=== PATIENT | female | born 1950 | race Caucasian/White ===

== ENCOUNTER 2017-12-11 11:48 | Day surgery (SDC) | payer MEDICARE, OTHER, SELFPAY ==
--- NOTE | 2017-12-06 16:58 | PM.PREOP ---
Pre-operative Note Interval Note Pre-op Check: Yes History & Physical Reviewed by Physician Changes: No
[2017-12-11 12:06] VITALS: BP 116/74; PULSE 70; RESP 16; TEMP 36.2; O2SAT 97; BMI 20.6
[2017-12-11] MEDS: PROPARACAINE 0.5% OPHTH SOL 2 DROPS EYE-OP (12:15)
[2017-12-11] MEDS: CATARACT EYE COMPOUND (10 DROPS/SYRINGE) 3 DROPS EYE-OP (12:20)
[2017-12-11] MEDS: BALANCED SALT IRRIG SOLN NO.2 15 ML IRRIG.SOLN IRR (13:34)
[2017-12-11] MEDS: LIDOCAINE 1% W/EPI INJ 20 ML INJ (13:35)
[2017-12-11] MEDS: HYALURONATE SODIUM 10 MG/ML SYRINGE INJ (13:35)
[2017-12-11] MEDS: CHONDROIDTIN/SOD HYALURONATE 1.05 ML SYRINGE INTRAOCULA (13:35)
[2017-12-11] MEDS: NEOMYCIN/POLY/DEX OPHTH OINT 1 APPLIC EYE-RIGHT (13:36)
[2017-12-11] MEDS: MOXIFLOXACIN OPHTH DROPS 3 ML BOTTLE 2 DROPS INJ (13:36)
[2017-12-11] MEDS: OFLOXACIN 0.3% OPHTH 5 ML 2 DROPS EYE-RIGHT (13:37)
[2017-12-11] MEDS: PHENYLEPHRINE/LIDOCAINE VIAL (OR) 0.2 ML EYE-OP (13:37)
[2017-12-11] MEDS: TRIAMCINOLONE 50 MG/5 ML VIAL INJ (13:38)
[2017-12-11] MEDS: BALANCED SALT IRRIG SOLN NO.2 500 ML, EPINEPHrine 1 MG IRR (13:39)
[2017-12-11] MEDS: LIDOCAINE 2% 4 ML, BUPIVACAINE 0.5% (PF) 4 ML, HYALURONIDASE 150 UNIT INJ (13:40)
[2017-12-11 14:10] VITALS: BP 141/90; PULSE 51; RESP 16; TEMP 36.5; O2SAT 100
--- NOTE | 2017-12-11 15:36 | PM.OP.1 ---
Operative Date/Time/Diagnoses Date of procedure: 12/11/17 Time of procedure: 13:00 Procedure & Clinicians Procedure: Date of service: [] Preoperative diagnoses: 1. Right [] Cataract Postoperative diagnoses: 1. Cataract Nuclear sclerotic and cortical. 2. Astigmatism which she elects to correct with a toric intraocular lens. Procedure: Phacoemulsification with posterior chamber toric intraocular lens implant Surgeon: Adamaris Kowalski MD Complications none Specimen: None Implant:[id number] [place] 065 Blood loss: None Anesthesia: Retrobulbar with monitored standby Anesthesiologist: Rajan Agrawal M.D. Description of procedure: Patient is a female 67 year old with decreased vision due to cataract which is affecting activities of daily living. She wants surgery to improve vision. She was taken to the operating room and given IV sedation. Proparacaine drops are placed in indelible ink rae were placed at the 90 and 180 degree meridian. She is then placed on the operating room table and given a retrobulbar block insert consisting of 6 cc of 2% xylocaine without epinephrine mixed half and half with 0.5% Marcaine with 1 cc of hyaluronidase added is placed between the medial and lateral 1/3 of the inferior orbital rim. Lid akinesia is obtain with 1% xylocaine with epinephrine infiltrated along the lid margin. The eye is manually massaged for 30 sec, prepped using Betadine solution, and draped in the usual sterile fashion. Temporal approach was made, a 1 mm side-port incision was made at the 7:30 position. Phenylephrine 1.5% mixed with 1% xylocaine 0.2 cc was placed into the anterior chamber. Viscoat followed by Robinson was then placed. A 2.6 mm clear incision with a 2.6 mm blade was placed at the 170 degree meridian. A 360 degree capsulorrhexis style capsulotomy was then performed with a cystitome needle on a Healon. Hydrodelineation and hydrodissection were performed. The phacoemulsification unit is introduced, and sculpting notice used to groove the central lens. It is then removed in chopping mode. Epi nucleus is removed with epinuclear mode and irrigation aspiration was used to remove the peripheral cortex. The posterior capsule is polished. The intraocular lens is selected, inspected, power confirmed, and placed in the posterior chamber. The pupil was not constricted. The wound was strongly hydrated and tested for leaks, there was none and was left sutureless. Vigamox 0.1 cc was placed into the anterior chamber at the 65 degree meridian confirmed by multiple corneal markers. Kenalog 0.2 cc was placed in the superior subconjunctival space. A drop of antibiotic and was placed and the eye was patched and shielded. The patient was stable and returned to the recovery room in excellent condition. Dictated by: Adamaris Kowalski MD Copy to: [facility] Same procedure as scheduled: Yes
== END 2017-12-11 14:25 | disposition home or self-care (01) ==
LOC: OR 11:49
PROVIDERS: PCP Physician Assistant Medical; Visit Provider Ophthalmology
DX: H25.11 Age-related nuclear cataract, right eye (principal); F41.9 Anxiety disorder, unspecified; H52.201 Unspecified astigmatism, right eye
CPT/HCPCS: J0171; J2250; J2704; J3010; J3301; J3470; V2787

== ENCOUNTER 2017-12-25 09:45 | Day surgery (SDC) | payer MEDICARE, OTHER, SELFPAY ==
--- NOTE | 2017-12-23 09:20 | PM.PREOP ---
Pre-operative Note Interval Note Pre-op Check: Yes History & Physical Reviewed by Physician Changes: No
--- NOTE | 2017-12-23 09:20 | PM.OP.1 ---
Operative Date/Time/Diagnoses Date of procedure: 12/25/17 Time of procedure: 12:00
[2017-12-25] MEDS: PROPARACAINE 0.5% OPHTH SOL 2 DROPS EYE-OP (11:16)
[2017-12-25 11:17] VITALS: BP 138/82; PULSE 61; RESP 16; TEMP 36.3; O2SAT 100; BMI 20.5
[2017-12-25] MEDS: CATARACT EYE COMPOUND (10 DROPS/SYRINGE) 3 DROPS EYE-OP ×3 (11:21→11:31)
--- NOTE | 2017-12-25 12:23 | P.OP_ITS ---
Operative Date/Time/Diagnoses Date of procedure: 12/25/17 Time of procedure: 12:30 Procedure & Clinicians Procedure: Date of service: December 25, 2017 Preoperative diagnoses: 1. Nuclear and cortical Cataract 2. Astigmatism which she elects to correct with a toric intraocular lens implant. Myopic target. Postoperative diagnoses: 1. Cataract removed with phacoemulsification and toric intraocular lens implant placed. Procedure: Phacoemulsification with posterior chamber intraocular lens implant Surgeon: Adamaris Kowalski MD Complications: none. Specimen: None Implant:[id number]+24.0 [place] 115. Blood loss: None Anesthesia: Retrobulbar with monitored standby Anesthesiologist: Nette laureano M.D. Description of procedure: Patient is a 67 year old female with decreased vision due to cataract which is affecting activities of daily living. She wants surgery to improve vision She also wants to correct astigmatism with the reading target of -2.00 diopters. She was taken to the operating room and given topical proparacaine drops. Indelible ink rae were placed at the 90 and 180 degree meridian. She was placed on the operating room table and given IV sedation A retrobulbar block consisting of 6 cc of 2% xylocaine without epinephrine mixed half and half with 0.5% Marcaine with 1 cc of hyaluronidase added is placed between the medial and lateral 1/3 of the inferior orbital rim. Lid akinesia is obtain with 1% xylocaine with epinephrine infiltrated along the lid margin. The eye is manually massaged for 30 sec, prepped using Betadine solution, and draped in the usual sterile fashion. Temporal approach was made, a 1 mm side-port incision was made at the 12 oclock meridian. Phenylephrine 1.5% mixed with 1% xylocaine 0.2 cc was placed into the anterior chamber. Viscoat followed by Robinson was then placed. A 2.6 mm clear incision with a 2.6 mm blade was placed at the 3 oclock meridian. A 360 degree capsulorrhexis style capsulotomy was then performed with a cystitome needle on a Healon. Hydrodelineation and hydrodissection were performed. The phacoemulsification unit is introduced, and sculpting notice used to groove the central lens. It is then removed in chopping mode. Epi nucleus is removed with epinuclear mode and irrigation aspiration was used to remove the peripheral cortex. The posterior capsule is polished. The intraocular lens is selected, inspected, power confirmed, and placed in the posterior chamber at the 115 degree meridian. The pupil was not constricted. The wound was stromally hydrated and tested for leaks, there was none and was left sutureless. Vigamox 0.1 cc was placed into the anterior chamber. Kenalog 0.2 cc was placed in the superior subconjunctival space. A drop of antibiotic and was placed and the eye was patched and shielded. The patient was stable and returned to the recovery room in excellent condition. Dictated by: Adamaris Kowalski MD Copy to: [facility] Same procedure as scheduled: Yes
[2017-12-25] MEDS: PROPARACAINE 0.5% OPHTH SOL 2 DROPS EYE-LEFT (12:34)
[2017-12-25] MEDS: LIDOCAINE 1% W/EPI INJ 20 ML INJ (12:59)
[2017-12-25] MEDS: CHONDROIDTIN/SOD HYALURONATE 1.05 ML SYRINGE INTRAOCULA (12:59)
[2017-12-25] MEDS: BALANCED SALT IRRIG SOLN NO.2 15 ML IRRIG.SOLN IRR (12:59)
[2017-12-25] MEDS: HYALURONATE SODIUM 10 MG/ML SYRINGE INJ (12:59)
[2017-12-25] MEDS: NEOMYCIN/POLY/DEX OPHTH OINT 1 APPLIC EYE-LEFT (13:00)
[2017-12-25] MEDS: MOXIFLOXACIN OPHTH DROPS 3 ML BOTTLE 2 DROPS INJ (13:00)
[2017-12-25] MEDS: OFLOXACIN 0.3% OPHTH 5 ML 2 DROPS EYE-LEFT (13:01)
[2017-12-25] MEDS: PHENYLEPHRINE/LIDOCAINE VIAL (OR) 0.2 ML EYE-OP (13:01)
[2017-12-25] MEDS: TRIAMCINOLONE 50 MG/5 ML VIAL INJ (13:02)
[2017-12-25] MEDS: LIDOCAINE 2% 4 ML, BUPIVACAINE 0.5% (PF) 4 ML, HYALURONIDASE 150 UNIT INJ (13:03)
[2017-12-25] MEDS: BALANCED SALT IRRIG SOLN NO.2 500 ML, EPINEPHrine 1 MG IRR (13:03)
[2017-12-25 13:25] VITALS: BP 130/80; PULSE 54; RESP 18; TEMP 36.3; O2SAT 98
== END 2017-12-25 13:40 | disposition home or self-care (01) ==
LOC: OR 09:47
PROVIDERS: PCP Physician Assistant; Visit Provider Ophthalmology
DX: H25.12 Age-related nuclear cataract, left eye (principal); F41.9 Anxiety disorder, unspecified; H52.202 Unspecified astigmatism, left eye
CPT/HCPCS: J0171; J2250; J2704; J3010; J3301; J3470; V2787

== ENCOUNTER → 2018-12-12 07:43 | Outpatient (CLI) | payer MEDICARE, OTHER, SELFPAY ==
[2018-12-12 08:19] LABS: Add Manual Diff / Slide Review NO; Basophils Absolute Auto 100 /uL (0-100); Basophils Percent Auto 1.9 % (0-2); Eosinophils Absolute Auto 200 /uL (0-450); Eosinophils Percent Auto 4.2 % (2-4); Hematocrit 40.4 % (36-46); Hemoglobin 14.1 g/dL (12.0-16.0); Lymphocytes Absolute Auto 1100 /uL (1100-4500); Lymphocytes Percent Auto 31.3 % (25-40); Mean Corpuscular Hemoglobin 32.6 PG (26-34); Mean Corpuscular Volume 93.4 fL (80-100); Monocytes Absolute Auto 400 /uL (0-900); Monocytes Percent Auto 11.2 % (3-14); Neutrophils Absolute Auto 1900 /uL (1500-7000); Neutrophils Percent Auto 51.4 % (50-75); Platelet Count 193 X10^3/uL (150-400); Red Blood Cell Count 4.32 X10^6/uL (4.0-5.2); Red Cell Distribution Width 13.4 % (11.6-14.8); White Blood Cell Count 3.6 X10^3/uL (4.5-11.0)
[2018-12-12 08:34] LABS: Alanine Aminotransferase 28 IU/L (9-52); Albumin 4.4 g/dL (3.5-5.0); Albumin Globulin Ratio 1.5 (1.0-2.8); Alkaline Phosphatase 48 U/L (38-126); Aspartate Aminotransferase 38 IU/L (14-36); Bilirubin Total 0.4 mg/dL (0.2-1.3); Blood Urea Nitrogen 20 mg/dL (7-17); Calcium 9.1 mg/dL (8.4-10.2); Carbon Dioxide 29 mmol/L (22-32); Chloride 105 mmol/L (98-107); Cholesterol 167 mg/dL (140-199); Estimated Glomerular Filt Rate > 60.0 mL/min (>60); Globulin 2.9 g/dL (1.7-4.1); Glucose 95 mg/dL (80-110); HDL Cholesterol 74 mg/dL (40-60); HEMOLYSIS < 15 (0-50); LDL Cholesterol Calculated 85 mg/dL (<100); Potassium 4.2 mmol/L (3.4-5.1); Sodium 140 mmol/L (137-145); Total Protein 7.3 g/dL (6.3-8.2); Triglycerides 42 mg/dL (35-150)
== END ==
PROVIDERS: PCP Physician Assistant; Visit Provider Physician Assistant
DX: M81.0 Age-related osteoporosis without current pathological fracture (principal); E78.2 Mixed hyperlipidemia; Z78.0 Asymptomatic menopausal state
CPT/HCPCS: 36415; 77080; 80053; 80061; 85025

== ENCOUNTER → 2020-12-19 12:20 | Outpatient (CLI) | payer MEDICARE, OTHER, SELFPAY ==
--- NOTE | 2020-12-19 | DI.RAD.S_ITS ---
PROCEDURE: XR DEXA AXIAL SKELETON INDICATIONS: Age-related osteoporosis without current pathologi COMPARISON: [facility], CR, XR DEXA AXIAL SKELETON, 12/12/2018, 13:49. FINDINGS: This blank DEXA report has been sent in error by the PACS system. The correct and complete report will be forthcoming in 1-2 days. Thank you for your patience and understanding. Dictated by: Courtney Gates MD, PhD on 12/19/2020 at 16:49 Approved by: Courtney Gaets MD, PhD on 12/19/2020 at 16:49
== END ==
PROVIDERS: PCP Physician Assistant; Referring Provider Internal Medicine Endocrinology, Diabetes & Metabolism; Visit Provider Internal Medicine Endocrinology, Diabetes & Metabolism
DX: M81.0 Age-related osteoporosis without current pathological fracture (principal); Z78.0 Asymptomatic menopausal state; Z82.62 Family history of osteoporosis
CPT/HCPCS: 77080

== ENCOUNTER → 2023-01-14 11:34 | Outpatient (CLI) | payer MEDICARE, SELFPAY ==
--- NOTE | 2023-01-14 | DI.RAD.S_ITS ---
Bone Density Report Name: JEWELL MONTIEL Age: 72 Sex: Female Ethnicity: White Date of : 1950 Indication: osteopenia; Referring Provider: JONAH MULLER Study: Bone densitometry was performed. Exam Date: January 14, 2023 Accession number: [id number] Bone Density: Region BMD T-score Z-score Classification AP Spine(L1, L2, L3) 0.857 -1.5 0.8 Osteopenia Femoral Neck (Left) 0.553 -2.7 -0.7 Osteoporosis Total Hip (Left) 0.752 -1.6 0.1 Osteopenia Femoral Neck (Right) 0.609 -2.2 -0.2 Osteopenia Total Hip (Right) 0.783 -1.3 0.4 Osteopenia Total Hip Mean 0.767 -1.5 0.3 Osteopenia World Health Organization criteria for BMD impression classify patients as: Normal (T-score at or above -1.0), Osteopenia (T-score between -1.0 and -2.5), or Osteoporosis (T-score at or below -2.5). 10-year Fracture Risk: FRAX not reported because: Some T-score for Spine Total or Hip Total or Femoral Neck at or below -2.5 Previous Exams: -- Region Exam Age BMD T-score BMD Change BMD Change Date g/cm2 vs Baseline vs Previous -- AP Spine (L1-L3) 01/14/2023 72 0.857 -1.5 0.086 (11.2%)# 0.038 (4.7%)# 12/19/2020 70 0.819 -1.8 0.048 (6.2%)* 0.046 (5.9%)* 12/12/2018 68 0.773 -2.2 0.002 (0.3%) 0.002 (0.3%) 12/07/2016 66 0.771 -2.2 Total Hip(Left) 01/14/2023 72 0.752 -1.6 0.029 (4.1%)# 0.017 (2.3%)# 12/19/2020 70 0.735 -1.7 0.012 (1.7%) 0.019 (2.7%) 12/12/2018 68 0.715 -1.9 -0.007 (-1.0%) -0.007 (-1.0%) 12/07/2016 66 0.722 -1.8 Total Hip(Right) 01/14/2023 72 0.783 -1.3 0.011 (1.5%)# -0.011 (-1.4%)# 12/19/2020 70 0.794 -1.2 0.023 (2.9%) 0.034 (4.5%)* 12/12/2018 68 0.760 -1.5 -0.011 (-1.5%) -0.011 (-1.5%) 12/07/2016 66 0.772 -1.4 -- *Denotes significance at 95% confidence level, LSC for AP Spine = 0.022 g/cm2, LSC for Total Hip = 0.027 g/cm2 Rate of change results reflect vertebral levels common to all scans # Denotes dissimilar scan types or analysis methods Impression: The patient has osteoporosis, based on the Left Femoral Neck T-score. No significant bone loss was observed. Discussion: INCREASED RISK OF FRACTURE. BONE DENSITY IS UNDESIRABLY LOW AT ONE OR MORE SKELETAL SITES, CONSISTENT WITH POSTMENOPAUSAL OSTEOPOROSIS. This patient's lowest T-score meets the World Health Organization's (WHO) criteria for osteoporosis at one or more sites (T-score -2.5 or below). In untreated patients, the risk of osteoporotic fracture increases approximately two-fold for each 1.0 SD decrease in T-score. Low bone density is not the only risk factor for fracture; also consider factors such as patient's age, frailty or poor health, risk of falling, risk of injury, previous osteoporotic fracture, family history of osteoporosis, cigarette smoking, low body weight, etc. Not everyone with low bone mineral density has osteoporosis; osteomalacia and other metabolic bone disorders should also be considered. Patients who have osteoporosis should be evaluated for specific diseases and conditions (secondary causes) that may cause or contribute to bone loss. The [place] [employer] Clinical Endocrinologists (AACE) and National Osteoporosis Foundation (NOF) recommend pharmacologic intervention for all postmenopausal women whose T-score is in this range. The patient should follow a healthful lifestyle (good nutrition with adequate calcium and vitamin D, and appropriate weight-bearing exercise). Follow-Up: Consider a repeat BMD and Vertebral Fracture Assessment (VFA) exam in 2 years or sooner if medically necessary, to reassess this patient's status. Reported by: MARIE BRISENO MD on 01/14/2023 12:01:00 PM.
== END ==
PROVIDERS: Referring Provider Internal Medicine Endocrinology, Diabetes & Metabolism; Visit Provider Internal Medicine Endocrinology, Diabetes & Metabolism
DX: M81.0 Age-related osteoporosis without current pathological fracture (principal); M85.89 Other specified disorders of bone density and structure, multiple sites
CPT/HCPCS: 77080

== ENCOUNTER 2023-09-26 16:49 | Emergency (ER) | payer MEDICARE, SELFPAY ==
[2023-09-26 16:56] VITALS: BP 138/75; PULSE 55; RESP 16; TEMP 37.1; O2SAT 99; BMI 22.4
--- NOTE | 2023-09-26 17:11 | DI.MRI.S_ITS ---
PROCEDURE: MR STROKE Pre- and post-contrast brain MRI, non-contrast brain MR angiogram, pre- and postcontrast neck MR angiogram INDICATIONS: double vison TECHNIQUE: Brain: Noncontrast axial T1 spin echo, axial T2 fast spin echo, sagittal and axial FLAIR, coronal T2 fast spin echo, axial gradient echo, axial diffusion and ADC through the brain. After the administration of contrast, axial 3D VIBE of the cranial vasculature and brain. Brain MRA: Non-contrast 3-D time of flight MR angiogram, with multiple echfobs-gigvxeddi-lkzdtgbmuq (MIP) reformats performed. Neck MRA: Axial and sagittal TruFISP through the neck. Coronal dynamic MR angiogram during administration of contrast in the arterial and venous phases, with 3-dimenstional znloxnh-fxfimfjwi-xehbaahcmh (MIP) reformats constructed from subtraction images. COMPARISON: None. FINDINGS: Image quality: Excellent. BRAIN: CSF spaces: Ventricles are normal in size and shape. Basal cisterns are patent. No extra-axial fluid collections. Brain: No intracranial bleeds or mass effects. Solo-white matter interface is normal. Diffusion weighted images show no acute infarct. Brainstem appears normal. Normal intravascular flow voids are present. No abnormal intracranial enhancement. Skull and face: Calvarial marrow signal is normal. Orbits appear normal. Sinuses: Sinuses and mastoids are clear. BRAIN MR ANGIOGRAM: Anterior circulation: Intracranial internal carotid arteries are normal in size and enhancement. The flow within the paired anterior cerebral arteries is normal and symmetric. The flow within the middle cerebral arteries is normal and symmetric. The anterior communicating artery is seen. No stenoses, occlusions, or aneurysms. Posterior circulation: The visualized portions of the vertebral arteries demonstrate normal caliber, and join to form a normal appearing basilar artery. The flow within the posterior cerebral arteries is normal and symmetric. No stenoses, occlusions, or aneurysms. NECK MR ANGIOGRAM: Carotids: Great vessels demonstrate a conventional anatomy as they arise from the aortic arch. The origins of the common carotid arteries appear patent. The calibers and courses of both common carotid arteries are normal. The bifurcation regions appear normal bilaterally. The internal carotid arteries demonstrate normal course and caliber. Posterior circulation: The origins of the vertebral arteries appear patent. More superior portions of both vertebral arteries demonstrate normal course and caliber, and join to form a normal appearing basilar artery. Miscellaneous: Subclavian arteries appear patent. Pre-contrast images through the neck show no soft tissue abnormalities. IMPRESSION: BRAIN MRI: No acute intracranial pathology. BRAIN MR ANGIOGRAM: No large vessel occlusion. NECK MR ANGIOGRAM: No large vessel occlusion. Dictated by: Mal Saenz M.D. on 09/26/2023 at 19:17 Approved by: Mal Saenz M.D. on 09/26/2023 at 19:20
--- NOTE | 2023-09-26 17:27 | EKG_ITS ---
[address] [address] Test Date: 2023-09-26 Pat Name: Brandie Moore Department: [facility] Room: Gender: Female Java User Interface Developer: JOY : 1950 Requested By: Order Number: [id number] Reading MD: Alli Langston MD Measurements Intervals [place] Rate: 63 P: 41 AK: 186 QRS: -10 QRSD: 86 T: 73 QT: 396 QTc: 405 Interpretive Statements Normal sinus rhythm Electronically Signed On 09-27-2023 7:34:31 PDT by Alli Langston MD
[2023-09-26 17:31] VITALS: PULSE 67; O2SAT 98
[2023-09-26 17:41] VITALS: PULSE 62; O2SAT 97
[2023-09-26 17:46] LABS: Add Manual Diff / Slide Review NO; Basophils Absolute Auto 100 /uL (0-100); Eosinophils Absolute Auto 400 /uL (0-450); Eosinophils Percent Auto 7.3 % (2-4); Hematocrit 39.3 % (36-46); Hemoglobin 13.3 g/dL (12.0-16.0); Lymphocytes Absolute Auto 1600 /uL (1100-4500); Lymphocytes Percent Auto 31.4 % (25-40); Mean Corpuscular Hemoglobin 30.8 PG (26-34); Mean Corpuscular Volume 90.6 fL (80-100); Monocytes Absolute Auto 600 /uL (0-900); Monocytes Percent Auto 11.5 % (3-14); Neutrophils Absolute Auto 2400 /uL (1500-7000); Neutrophils Percent Auto 47.8 % (50-75); Platelet Count 242 X10^3/uL (150-400); Red Blood Cell Count 4.33 X10^6/uL (4.0-5.2); Red Cell Distribution Width 13.6 % (11.6-14.8)
[2023-09-26 17:47] LABS: Prothrombin Time 11.5 SECONDS (9.4-12.5)
[2023-09-26 17:49] LABS: PTT Partial Thromboplastin Tim 29 SECONDS (25.1-36.5)
[2023-09-26 17:54] LABS: Alanine Aminotransferase 21 IU/L (<35); Albumin 4.3 g/dL (3.5-5.0); Albumin Globulin Ratio 1.6 (1.0-2.8); Alkaline Phosphatase 38 U/L (38-126); Aspartate Aminotransferase 31 IU/L (14-36); BUN Creatinine Ratio 38.3 (6-22); Bilirubin Total 0.5 mg/dL (0.2-1.3); Blood Urea Nitrogen 23 mg/dL (7-17); Calcium 8.8 mg/dL (8.4-10.2); Carbon Dioxide 25 mmol/L (22-32); Chloride 108 mmol/L (98-107); Estimated Glomerular Filt Rate > 60 mL/min (>60); Globulin 2.7 g/dL (1.7-4.1); Glucose 118 mg/dL (80-110); HEMOLYSIS < 15 (0-50); Lipase 114 U/L (23-300); Potassium 3.8 mmol/L (3.4-5.1); Sodium 140 mmol/L (137-145)
[2023-09-26 18:00] VITALS: BP 132/72
--- NOTE | 2023-09-26 18:21 | ED_ITS ---
HPI - Eye Problem General Chief complaint: Eye Problems Stated complaint: sent by md for stroke protocol Time Seen by Provider: 09/26/23 17:10 Source: patient Mode of arrival: Ambulatory History of Present Illness HPI Narrative: 73-year-old female with 2 days duration double vision, referred by local ophthalmologists for MRI brain imaging stroke protocol. No prior history of stroke. No use of blood thinner medication, not usually taking any aspirin. No numbness or weakness to face arm or leg. No visual field spots or blurring. No trauma injury or recent falls. No facial or ocular or periorbital trauma known. No known history of diabetes. No previous problems with double vision. She can not seem to recall if there is any double vision looking toward a certain direction, seems to be with both eyes in any direction, but seems to be most noticeable when she is trying to watch television. She presented to eye doctor, had dilated exam, and was referred here for MRI stroke protocol imaging. She was driven by her who is here as well Related Data Allergies Allergy/AdvReac Type Severity Reaction Status Date / Time iodine [IODINE] Allergy Severe Swollen, Verified 12/11/17 12:05 red, rash shellfish derived Allergy Severe Swollen, Verified 12/11/17 12:05 [SHELLFISH DERIVED] red, rash Review of Systems Review of Systems Narrative: see HPI Patient History Social History household members: spouse Smoking Status: Never smoker Smoking Status: Never smoker Substance Use Type: does not use Exam Narrative Exam Narrative: GENERAL: Well-developed patient, in mild distress, seems anxious about expedited workup so as to not miss her [place] back home. HEAD: Atraumatic. Normocephalic. EYES: Pupils equal round and reactive. Extraocular motions intact. No scleral icterus. No injection or drainage. ENT: Nose without bleeding, purulent drainage. Throat without erythema, tonsillar hypertrophy or exudate. Airway patent. NECK: Trachea midline. Non tender CARDIOVASCULAR: Regular rate and rhythm without murmurs, gallops, or rubs. RESPIRATORY: Clear to auscultation. Breath sounds equal bilaterally. No wheezes, rales, or rhonchi. GASTROINTESTINAL: Abdomen soft, non-tender, nondistended. EXTREMITIES: No edema or joint tenderness. BACK: Nontender without deformity or crepitance. No flank tenderness. NEURO: AOx3. Motor 5/5 upper extremities and lower extremities. Nybodg-jj-fzok testing normal. Eyes are dilated from ophthalmology visit, her holiday she is able to finger count, no double vision on horizontal or vertical field testing. No obvious visual deficits despite dilated eye exam. Cranial nerve exam unremarkable otherwise. SKIN: No rash or erythema of visible areas Initial Vital Signs Initial Vital Signs: Vital Signs Temperature 98.7 F 09/26/23 16:56 Pulse Rate 55 L 09/26/23 16:56 Respiratory Rate 16 09/26/23 16:56 Blood Pressure 138/75 09/26/23 16:56 Pulse Oximetry 99 09/26/23 16:56 Oxygen Delivery Method Room Air 09/26/23 16:56 Course Orders Ordered: Discontinued Medications Aspirin (Aspirin 81 Mg Chew Tab) 324 mg PO NOW ONE Stop: 09/26/23 19:08 Last Admin: 09/26/23 19:09 Dose: 324 mg Documented By: DEBORAH Vital Signs Vital signs: Vital Signs - 8 hr 09/26/23 19:18 Pulse Rate 60 Respiratory Rate 16 Blood Pressure 145/79 H Pulse Oximetry 96 Oxygen Delivery Method Room Air MDM - Eye Problem Lab Data Attestation: I reviewed the patient's lab results. 09/26/23 17:29 09/26/23 17:29 Labs: Lab Results 09/26/23 Range/Units 17:29 WBC 5.0 (4.5-11.0) X10^3/uL RBC 4.33 (4.0-5.2) X10^6/uL Hgb 13.3 (12.0-16.0) g/dL Hct 39.3 (36-46) % MCV 90.6 (80-100) fL MCH 30.8 (26-34) PG MCHC 34.0 (30-36) % RDW 13.6 (11.6-14.8) % Plt Count 242 (150-400) X10^3/uL Neut % (Auto) 47.8 L (50-75) % Lymph % (Auto) 31.4 (25-40) % [place] % (Auto) 11.5 (3-14) % Eos % (Auto) 7.3 H (2-4) % Baso % (Auto) 2.0 (0-2) % Neut # (Auto) 2400 (2625-8844) /uL Lymph # (Auto) 1600 (4292-4726) /uL [place] # (Auto) 600 (0-900) /uL Eos # (Auto) 400 (0-450) /uL Baso # (Auto) 100 (0-100) /uL PT 11.5 (9.4-12.5) SECONDS INR 1.0 (0.9-1.3) APTT 29 (25.1-36.5) SECONDS Sodium 140 (137-145) mmol/L Potassium 3.8 (3.4-5.1) mmol/L Chloride 108 H (98-107) mmol/L Carbon Dioxide 25 (22-32) mmol/L BUN 23 H (7-17) mg/dL Creatinine 0.60 (0.52-1.04) mg/dL Estimated GFR > 60 (>60) mL/min BUN/Creatinine Ratio 38.3 H (6-22) Glucose 118 H (80-110) mg/dL Calcium 8.8 (8.4-10.2) mg/dL Total Bilirubin 0.5 (0.2-1.3) mg/dL AST 31 (14-36) IU/L ALT 21 (<35) IU/L Alkaline Phosphatase 38 (38-126) U/L Total Protein 7.0 (6.3-8.2) g/dL Albumin 4.3 (3.5-5.0) g/dL Globulin 2.7 (1.7-4.1) g/dL Albumin/Globulin Ratio 1.6 (1.0-2.8) Lipase 114 (23-300) U/L ECG Data Attestation: I personally reviewed and interpreted this ECG as follows: Interpretation: Normal sinus rhythm with rate of 63, no obvious ST segment elevation or depression changes. [place] 186, QRS 86, QTC 405. MDM Narrative Medical decision making narrative: 73-year-old female with intermittent diplopia for the last [address] [facility] for MR stroke protocol imaging. This was ordered in triage, labs were sent. Patient did go over for MRI Stroke Protocol studies, but she and her decided to leave against medical advice before the reports were available, as they insisted on leaving in time to make the return [place] to their [place] [facility]. EKG and blood test screening studies were unremarkable. Left the ED against medical advice with as above Discharge Plan Departure Patient Disposition: Left Against Medical Advice Clinical Impression: Double vision Activity Restrictions/Additional Instructions: Intermittent double vision symptoms for the last 2 days, evaluation and I clinic reported earlier today, no direct communication with ED providers, but apparently there was a request for MRI brain imaging, this was performed, there results are still pending at this time. But you wanted to leave against medical advice at this time without the results, as you need to make the [place] home back to Saturday. Call tomorrow for the results of the MRI, and to coordinate with your ophthalmology ice specialists further. Consider use of aspirin daily. Return earlier if any change worsening symptoms or any concerns prior Referrals: Miscellaneous,Doctor, MD [Primary Care Provider] - Stand Alone Forms: Patient Portal/API, Against Medical Advice
[2023-09-26] MEDS: ASPIRIN 81 MG CHEW TAB 324 MG PO (19:09)
[2023-09-26 19:18] VITALS: BP 145/79; PULSE 60; RESP 16; O2SAT 96
== END 2023-09-26 19:19 | disposition left against medical advice (07) ==
PROVIDERS: Emergency Medicine; Emergency Provider Emergency Medicine
DX: H53.2 Diplopia (principal); Z79.82 Long term (current) use of aspirin
CPT/HCPCS: 36415; 70544; 70549; 70553; 80053; 83690; 85025; 85610; 85730; 93005; 93010; 99284; A9579